=== PATIENT | female | born 1950 | race Caucasian/White ===

== ENCOUNTER → 2018-06-11 12:44 | Outpatient (CLI) | payer BC, SELFPAY ==
--- NOTE | 2018-06-11 12:51 | BI_ITS ---
MAMMOGRAPHY - UNILATERAL SCREENING: LEFT BREAST REASON FOR EXAM: Female, 67 years old. Routine annual screening examination (unilateral). PERTINENT HISTORY: Personal history of breast cancer. Prior right mastectomy. TECHNIQUE: Digital unilateral breast matthew (3D mammographic acquisition) in the CC and MLO projections. 2-D mediolateral oblique (MLO) and craniocaudad (CC) views of both breasts were obtained. CAD: Full Field Digital Mammography with Computer Added Detection was performed. COMPARISON: Comparison is made with prior study dated May 20, 2017 and April 10, 2016. FINDINGS: Breast Composition: There are scattered areas of fibroglandular density. There are no dominant masses or suspicious calcifications. No other significant abnormalities are identified. There has been no significant change since the prior study. BI/UNILAT LT SCRN W/CAD IMPRESSION: Stable unilateral screening mammogram. Yearly follow-up mammogram recommended. (A) ASSESSMENT CATEGORY: BIRADS Category 1: Negative. A letter regarding these results will be sent to the patient by the facility within 30 days. Approximately 10% of breast cancers are not detected by mammography. A normal mammogram should not delay biopsy of a clinically suspicious abnormality. [id number] Electronically Signed: Jori Roque MD at 14:30 EST Tel [phone], Service support ,
== END ==
PROVIDERS: Family Provider Family Medicine; PCP Family Medicine; Referring Provider Obstetrics & Gynecology; Visit Provider Obstetrics & Gynecology
DX: Z12.31 Encounter for screening mammogram for malignant neoplasm of breast (principal); N64.4 Mastodynia
CPT/HCPCS: 77061; 77067; G0279

== ENCOUNTER → 2019-06-23 11:54 | Outpatient (CLI) | payer BC, SELFPAY ==
--- NOTE | 2019-06-23 11:57 | BI_ITS ---
MAMMOGRAPHY - UNILATERAL SCREENING: LEFT BREAST REASON FOR EXAM: Female, 68 years old. Routine annual screening examination (unilateral). PERTINENT HISTORY: History of right mastectomy in 2015. History of left axillary lipoma removed. TECHNIQUE: TECHNIQUE: Digital examination. Mediolateral oblique (MLO) and craniocaudad (CC) views of both breasts were obtained. CAD: CAD was performed on this study. COMPARISON: June 11, 2018 FINDINGS: Breast Composition: The breasts are almost entirely fatty. There are no dominant masses or suspicious calcifications. No other significant abnormalities are identified. BI/SCREEN MAMM (CAD) W/KARI UNI L IMPRESSION: Stable bilateral screening mammogram. ASSESSMENT CATEGORY: BIRADS Category 2: Benign. A letter regarding these results will be sent to the patient by the facility within 30 days. FOLLOW UP RECOMMENDATION: Yearly follow up mammogram recommended. (A) Approximately 10% of breast cancers are not detected by mammography. A normal mammogram should not delay biopsy of a clinically suspicious abnormality. [id number] Electronically Signed: Narendra Aj MD at 13:21 EST , Service support ,
== END ==
PROVIDERS: Family Provider Family Medicine; PCP Family Medicine; Referring Provider Obstetrics & Gynecology; Visit Provider Obstetrics & Gynecology
DX: Z12.31 Encounter for screening mammogram for malignant neoplasm of breast (principal)
CPT/HCPCS: 77063; 77067

== ENCOUNTER 2019-08-21 04:12 | Emergency (ER) | payer BC, SELFPAY ==
[2019-08-21 04:14] VITALS: BP 148/86; PULSE 114; RESP 18; TEMP 37.8; O2SAT 95; BMI 31.1
[2019-08-21 04:18] VITALS: O2SAT 96
--- NOTE | 2019-08-21 04:25 | CT_ITS ---
STUDY: CT BRAIN WITHOUT CONTRAST REASON FOR EXAM: Female, 69 years old. HEADACHE,FEVER,ELEVATED BP AND A COUGH SINCE YESTERDAY -- HX:HTN,BREAST CANCER RADIATION DOSAGE (If Supplied By Facility): CTDIvol = ( 44.99 ) mGy, DLP = ( 812.98 ) mGycm TECHNIQUE: Transaxial CT imaging of the brain was performed without administration of intravenous contrast material. Individualized dose optimization techniques were used for this CT. COMPARISON: No relevant priors. FINDINGS: Normal soft tissue structures. Normal calvarium. Normal size ventricles and extra-axial spaces for the patient''s age. Normal white matter tracts of the cerebral hemispheres. Normal basal ganglia and thalami. Normal brainstem. Normal cerebellum. There is atherosclerosis of the carotid siphons and left vertebral artery. There is no intracranial hemorrhage. There are no findings of an acute ischemic infarction. Normal visualized paranasal sinuses. CT/Brain/Head without Contrast IMPRESSION: 1. No acute intracranial hemorrhage or mass effect. Electronically Signed: Christiano Griffin MD ([place]) at 5:44 EST , Service support ,
--- NOTE | 2019-08-21 04:25 | RAD_ITS ---
STUDY: X-RAY CHEST REASON FOR EXAM: Female, 69 years old. C/O JAW AND BACK PAIN TECHNIQUE: AP COMPARISON: None. FINDINGS: EKG leads project over the chest. The lungs are clear and expanded. There is no demonstrated pleural abnormality. Normal size heart. Normal mediastinum and rox. Normal visualized pulmonary arteries. There is atherosclerotic tortuosity of the aortic arch and descending thoracic aorta. Normal visualized thoracic spine. Normal visualized ribs, clavicles, and shoulders. There is no demonstrated abnormality of the visualized soft tissue structures of the upper abdomen. RAD/Chest 1 View (Portable) IMPRESSION: Nonacute portable x-ray examination of the chest. Electronically Signed: Christiano Griffin MD ([place]) at 5:43 EST , Service support ,
--- NOTE | 2019-08-21 04:25 | EKG12_ITS ---
Test Reason : DYSRHYTHMIA Blood Pressure : / mmHG Vent. Rate : 112 BPM Atrial Rate : 112 BPM P-R Int : 138 ms QRS Dur : 088 ms QT Int : 332 ms P-R-T Axes : 020 013 027 degrees QTc Int : 453 ms Sinus tachycardia Nonspecific ST abnormality Abnormal ECG Confirmed by URBAN LINDSAY, MARY ANNE ([id number]), food expeditor RADHA PICKENS ([id number]) on 08/24/2019 12:10:00 PM Referred By: DC Confirmed By:MARY ANNE DUGGAN MD
[2019-08-21] MEDS: 0.9% Normal Saline 1,000 ML 1000 ML IV (04:44)
[2019-08-21] MEDS: Aspirin 81 MG TAB.CHEW 324 MG PO (04:44)
[2019-08-21] MEDS: Ondansetron 4 MG/2 ML Vial IV (04:45)
[2019-08-21 04:48] LABS: Absolute Lymphocyte Count 1.64 X10^3/uL (0.83-4.51); Absolute Neutrophil Count 12.8 X10^3/uL (2.0-7.7); Basophil# 0.05 X10^3/uL; Basophil% 0.3 % (0-1); Eosinophil# 0.01 X10^3/uL; Eosinophils% 0.1 % (0-5); Hematocrit 41.5 % (37-47); Hemoglobin 13.8 g/dL (12.0-15.0); Lymphocyte # 1.64 X10^3/ul (4.0); Lymphocyte % 10.3 % (19-41); Mean Corp Hgb Conc 33.3 g/dL (32-36); Mean Corpuscular Hgb 28.6 pg (27.0-32.0); Mean Corpuscular Volume 86.1 fL (81-99); Mean Platelet Vol. 9.8 fl (6.2-12.0); Monocyte# 1.26 X10^3/uL; Monocyte% 7.9 % (0-10); NRBC Flagged by Analyzer 0 % (0-5); Neutrophil # 12.81 X10^3/uL (2.7-7.7); Neutrophil % 80.8 % (47-70); Platelet Count 185 K/mm3 (150-450); RBC Distribution Width CV 12.6 % (11.6-14.6); RBC Distribution Width SD 39.8 fl (35.1-43.9); Red Blood Count 4.82 M/mm3 (4.2-5.4); White Blood Count 15.9 K/mm3 (4.4-11.0)
[2019-08-21 05:12] LABS: Anion Gap 6 (5-15); BUN 16 mg/dL (7-18); BUN/Creat Ratio 15.5 RATIO (10-20); Calcium,Total 8.8 mg/dL (8.5-10.1); Chloride 99 mmol/L (98-107); Creatinine, Serum 1.03 mg/dL (0.55-1.02); EST Glomerular Filtration Rate 57 mL/min (>60); Est Glom Filt Rate - Afr Amer 69 mL/min (>60); Estimated Creatinine Clearance 41.34 ml/min; Glucose 124 mg/dL (74-106); Sodium Level 134 mmol/L (136-145)
[2019-08-21 05:18] LABS: Bacteria 0 SEEN /hpf (None Seen); Color, Urine Yellow (Yellow); Glucose, Dipstick Normal (Normal); Ketone-Dipstick Negative (Negative); Leukocyte Esterase-Dipstick Negative /ul (Negative); Mucous, Urine 0 SEEN /hpf (<or=2+); Nitrite-Dipstick Negative (Negative); Occult Blood-Urine 10 /ul (Negative); Protein-Dipstick Negative (Negative); Specific Gravity, Urine 1.015 (1.002-1.030); Squamous Epithelial Cells - UA 0 SEEN /hpf (5-10); Urine Bilirubin Dipstick Negative (Negative); Urine Clarity Clear (Clear); Urine Urobilinogen Normal (Normal); White Blood Cells 0 SEEN /hpf (0-5)
[2019-08-21 05:26] LABS: Red Blood Cells-Urine 0-5 SEEN /hpf (0-5)
--- NOTE | 2019-08-21 06:16 | ED.DCSUM_ITS ---
- ER Visit Summary Date of. Urinalysis normal. Grossly intact. Neck shows good range of motion with no meningeal signs. Heart tachycardic but regular. Lungs clear. Abdomen soft and nontender. Skin appears unremarkable. Good strength and sensation. Alert and oriented. No acute distress. Calf soft and supple. Test Results: EKG showed sinus rhythm at a rate of 112 with nonspecific changes, similar to prior. No acute ischemia or infarction pattern. White count 15.9, sodium 134, glucose 124, creatinine 1.03. Urinalysis normal. Troponin normal. Influenza test negative. Chest x-ray showed nothing acute. CT brain showed nothing acute. Emergency Department Course and Treatment: Patient presents with fever, body aches, chronic cough, fluttering in her chest. Because of her age, I did check a work-up, but I was concerned for viral illness like influenza. CT brain was normal. No sign of bleeding, tumor, and her exam is not consistent with meningitis, encephalitis, etc. Her chest x-ray, urinalysis were unremarkable. Troponin and EKG were unremarkable. Nothing to suggest ACS. Nothing to suggest PE. Her white count was elevated, but I do not identify a source of infection. Her influenza test was negative. I still suspect she may have a viral illness or a false negative influenza test. On reevaluation, patient's heart rate is 100. She is afebrile. No acute distress. She would like to go home with outpatient follow-up. I discussed her results at length. She will stay hydrated and follow-up with her doctor. Return for any new or worsening issues right away. Treatment Plan: As above Disposition: Discharge Impression: 1. Myalgias 2. Leukocytosis This note was generated with [employer] dictation software. It may contain incorrect words, spelling, and punctuation that were not noted in review of the chart prior to signing ED Disposition - Plan for ED Patient: Referrals: Felice Sheehan MD [Primary Care Provider] -
--- NOTE | 2019-08-21 06:22 | ED.DEP ---
ED Disposition - Plan for ED Patient: Instructions: FEBRILE ILLNESS, Uncertain Cause (Adult) Referrals: Felice Sheehan MD [Primary Care Provider] -
[2019-08-21] MEDS: Acetaminophen 500 MG Tablet 1000 MG PO (06:23)
[2019-08-21 06:33] VITALS: BP 128/76; PULSE 90; RESP 16; O2SAT 100
== END 2019-08-21 06:33 | disposition home or self-care (01) ==
PROVIDERS: Emergency Provider Emergency Medicine; PCP Family Medicine
DX: M79.10 Myalgia, unspecified site (principal); D72.829 Elevated white blood cell count, unspecified; R05 Cough; R00.2 Palpitations; R06.00 Dyspnea, unspecified; I10 Essential (primary) hypertension; Z85.3 Personal history of malignant neoplasm of breast; Z79.82 Long term (current) use of aspirin; Z79.899 Other long term (current) drug therapy
CPT/HCPCS: 70450; 71045; 80048; 81001; 84484; 85025; 87804; 93005; 96361; 96374; 99285; J7030; A4216; J2405